=== PATIENT | male | born 1940 | race Caucasian/White ===

== ENCOUNTER 2017-04-24 07:11 | Emergency (ER) | payer OTHER, BC ==
[~2017-04-24] VITALS: Ht 177.8 cm; Wt 115.5 kg
[~2017-04-24 07:11] MED LIST: AMLODIPINE BESYL5 MG PO; BREO ELLIPTA I1 EACH IH; CEFDINIR300 MG PO; CHLORDIAZEPOXID25 MG PO; CYANOCOBALAM1000 MCG PO; LEVAQUIN750 MG PO; LEVOTHYROXINE50 MCG PO; LISINOPRIL10 MG PO; SPIRIVA1 INHALATI IH; VENTOLIN HFA18 GM AEROSOL; VENTOLIN HFA18 GM IH; ZITHROMAX500 MG PO
[2017-04-24 08:12] LABS: HEMATOCRIT 36.8 % (38.0-50.0); MCH 36.3 PG (29.0-34.0); MCHC 34.8 G/DL (30.0-36.0); MCV 104.2 FL (86-99); MEAN PLAT.VOLUME 9.6 uM^3 (9.0-12.4); PLATELET COUNT 173 K/uL (156-360); RBC DIS.WIDTH-CV 13.3 % (11.8-14.6); RBC DIS.WIDTH-SD 50.9 % (39-53); RED BLOOD COUNT 3.53 M/uL (4.00-5.50); WHITE BLOOD COUNT 13.8 K/uL (4.1-10.2)
[2017-04-24 08:44] LABS: ANION GAP 6 MEQ/L (2-14); CHLORIDE 105 MEQ/L (99-109); POTASSIUM 4.5 MEQ/L (3.7-5.4); SAMPLE HEMOLYSIS CHECK 0; SAMPLE ICTERIC CHECK 0; SAMPLE LIPEMIA CHECK 0; SODIUM 136 MEQ/L (136-147)
[2017-04-24 08:50] LABS: GFR ESTIMATE (CALCULATED) > 59 mL/min/; GLUCOSE 120 mg/dL (70-99); UREA NITROGEN (BUN) 17 mg/dL (9-23)
[2017-04-24] MEDS ORDERED: PREDNISONE50 MG PO (10:45)
[2017-04-24] MEDS ORDERED: ZITHROMAX Z-PA250 MG PO (10:45)
[2017-04-24 11:31] VITALS: BP 107/71
== END 2017-04-24 11:34 | disposition home or self-care (01) ==
LOC: EME 07:11
DX: J44.9 Chronic obstructive pulmonary disease, unspecified (principal); J40 Bronchitis, not specified as acute or chronic; G47.00 Insomnia, unspecified; Z87.891 Personal history of nicotine dependence
CPT/HCPCS: 71020; 80048; 85027; 99281; 99284; J7512